=== PATIENT | male | born 2000 | race Caucasian/White ===

== ENCOUNTER 2024-09-19 12:22 | Emergency (ER) | payer MEDICAID ==
[~2024-09-19] VITALS: Ht 175.3 cm; Wt 84.1 kg
[2024-09-19 12:49] VITALS: BP 144/82; PULSE 95; TEMP 99.1; O2SAT 96
[2024-09-19] MEDS: HYDROcodone/acetaminophen 10/325mg tab PO ONE (13:58)
[2024-09-19 14:44] VITALS: RESP 18
[2024-09-19] MEDS: HYDROcodone/acetaminophen 5mg/325mg tablet PO STA (16:20)
[2024-09-19] MEDS ORDERED: HYDR-3965 PO (16:53)
== END 2024-09-19 17:20 | disposition home or self-care (01) ==
LOC: ER 12:23
DX: S82.61XA Displaced fracture of lateral malleolus of right fibula, initial encounter for closed fracture (principal); Z79.899 Other long term (current) drug therapy; X50.1XXA Overexertion from prolonged static or awkward postures, initial encounter; Y93.01 Activity, walking, marching and hiking; Y92.89 Other specified places as the place of occurrence of the external cause; Y99.8 Other external cause status
CPT/HCPCS: 29515; 73610; 99283; A6449